=== PATIENT | female | born 1990 | race Caucasian/White ===

== ENCOUNTER 2024-10-01 07:59 | Inpatient (IN) | payer BC, MEDICAID, SELFPAY ==
[2024-10-01] VITALS (34 sets, daily range): BP systolic 115–158; BP diastolic 57–89; PULSE 67–88; RESP 16–17; TEMP 36.5–36.7; O2SAT 96–100; BMI 40.7
--- NOTE | 2024-10-01 07:34 | P.HP_ITS ---
Providers/Chief Complaint 2 Primary Care Provider: David Crain Chief Complaint: Ctx History of Present Illness Maggie Mcdonnell is a 34 year old with stated MELBA of 08/30/2024 which would put her at 44.4 weeks gestation by LMP. Her is complicated by no care, history of prior section x 3, history of x 3 at home, history of large for gestational age infant, history of stillbirth after attempted , obesity, advanced maternal age. The patient presented to labor and delivery triage for concerns that she was in labor and not making any progress over the last 3 hours. The patient began to have contractions on the afternoon of 09/29/2024. Her water broke at approximately 3 AM on 09/30/2024. She continued to contract at home and the felt like she was complete but did not make any change after 3 hours of pushing. Because of this they presented to labor and delivery for further evaluation. Review of Systems 2 Narrative: The patient denies any chest pains, shortness of breath, nausea, vomiting, diarrhea, constipation, fever, vaginal bleeding. Medications/Allergies Allergies Allergy/AdvReac Type Severity Reaction Status Date / Time No Known Allergies Allergy Verified 10/01/24 10:23 PFSH Acute 2 PFSH: Surgical History (Updated 10/01/24 @ 10:24 by Jamison Zimmer MD) History of section C/S x 3 Social History (Updated 10/01/24 @ 10:24 by Jamison Zimmer MD) Smoking and tobacco/nicotine status: never used tobacco/nicotine Alcohol intake: never Substance/Drug Use: never Physical Exam 2 Narrative: General: Alert and oriented x3, in pain with contractions Eyes: Pupils equal round and reactive to light and accommodation Mouth: Mucous membranes moist, pharynx non-erythematous Cardiac: Regular rate and rhythm without murmurs Lungs: Clear to auscultation bilaterally without wheezes, crackles or rhonchi Abdomen: Soft, non-tender, fundus consistent with gestational age : Complete with -1 station. Head does not move down well with contraction. Extremities: Trace edema in the bilateral lower extremities Data 10/01/24 07:20 10/01/24 07:20 A&P Assessment and plan (1) Intrauterine : In labor and delivery, the patient was complete and with pushing, the head pushed against the pubic bone, but would not move below it and retracted quickly. The heart tones showed frequent early decelerations and overall was relatively flat and was not reassuring. Because of concern for distress, prolonged rupture of membranes, and apparently being complete and pushing for over 3 hours without movement below the pubic bone as well as a history of prior section and large for gestational , it was felt best to proceed with a repeat low-transverse section to decrease risk for further complications. The patient and are in agreement with this plan of care. Risks and complications were discussed for a repeat with the patient. All questions were answered. (2) Advanced maternal age (AMA) in : (3) Obesity: Attestations 2 Medical Necessity Statement*: The patient will be here for greater than 2 midnights due to routine intrapartum and management of section. Coding Level of Care Code Acute Code for Chg Fwd Diagnoses Intrauterine Z34.90 Advanced maternal age (AMA) in Obesity E66.9
[2024-10-01] MEDS: citric acid-sodium citrate 30 mL UDC PO (07:38)
[2024-10-01] MEDS: metoclopramide 5 mg/mL SDV 2 mL 10 MG IVP (07:38)
[2024-10-01] MEDS: famotidine 20 mg/2 mL INJ IVP (07:38)
[2024-10-01] MEDS: sodium chloride 0.9% 1,000 ML 999 ML IV (07:38)
[2024-10-01] MEDS: ceFAZolin 2,000 mg SDV 2000 MG IVP (07:41)
[2024-10-01 07:48] LABS: Basophils # 0.1 10^3/uL (0.0-0.1); Basophils % 0.4 %; Hematocrit 36.7 % (36-47); Mean Corpuscular HGB Conc 31.6 g/dL (30-55); Mean Corpuscular Hemoglobin 26.1 pg (27-33); Mean Corpuscular Volume 82.5 fl (85-98); Mean Platelet Volume 12.4 fL (7.4-10.4); Monocytes # 0.4 10^3/uL (0.2-0.9); Monocytes % 2.4 %; Neutrophils # 15.28 10^3/uL (1.8-7.7); Neutrophils % 90.6 %; Nucleated Red Blood Cells % 0 %; Platelet Count 280 10^3/cmm (157-399); Red Blood Count 4.45 10^6/uL (3.85-5.65); Red Cell Distribution Width 13.8 % (12.1-15.1); White Blood Count 16.86 10^3/uL (3.29-11.43)
[2024-10-01 08:07] LABS: Hepatitis B Surface Antigen Non-Reactive (Nonreactive); Rubella IgG 74.7 IU/mL (0.0-10.0)
[2024-10-01 08:10] LABS: Rapid Plasma Reagin Syphilis Nonreactive (Nonreactive)
--- NOTE | 2024-10-01 08:19 | P.ANESASSM_ITS ---
Pre-Anesthetic Assessment Preop Diagnosis: Failure to progress Repeat C-seciton Familial anesthetic complications: None Was Beta Cesar taken within 24 hours: N/A Was Clonidine taken within 24 hours: N/A Last intake: > 8hrs Social No alcohol and No tobacco Exam alert, oriented x 3, clear to auscultation bilaterally and regular rate & rhythm Airway Mallampati: Class IV Metabolic Morbid Obesity Anesthetic Plan ASA status: 3E Anesthesia: Regional (specify below) Risk of > 500 ml blood loss (7ml/kg in children): Yes, adequate IV access and fluids planned Other Pertinent Information No pre- care, 2 prior c-sections, presents at 44 weeks gestation after failed home delivery. Denies any medical conditions Medications/Allergies Current Medications Generic Name Dose Route Start Last Admin Trade Name Freq PRN Reason Stop Dose Admin Sodium Chloride 1,000 mls @ 999 mls/hr 10/01/24 07:30 10/01/24 07:38 Sodium Chloride 0.9% IV 10/01/24 08:30 999 mls/hr .Q1H1M ONE Administration Data Anesthesia 10/01/24 07:20 10/01/24 07:20 Short CBC 10/01/24 Range/Units 07:20 WBC 16.86 H (3.29-11.43) 10^3/uL Hgb 11.60 (11.27-16.99) g/dL Hct 36.7 (36-47) % MCV 82.5 L (85-98) fl Plt Count 280 (157-399) 10^3/cmm Neut % (Auto) 90.6 % Neut # (Auto) 15.28 H (1.8-7.7) 10^3/uL Cardiac Studies: 2 No Data to Display
[2024-10-01 08:21] LABS: HIV 1 & 2 Antibody Non-Reactive (Non-Reactiv); HIV 1 & 2 Antigen Non-Reactive (Non-Reactiv)
[2024-10-01 08:29] LABS: Alanine Aminotransferase 22 U/L (0-33); Albumin Level 3.8 g/dL (3.5-5.2); Alkaline Phosphatase 249 U/L (35-105); Aspartate Amino Transferase 19 U/L (0-32); Blood Urea Nitrogen 16 mg/dL (6-20); Calcium 9.4 mg/dL (8.5-10.5); Carbon Dioxide 18 mmol/L (22-29); Chloride 97 mmol/L (98-107); Globulin 3.7 g/dL (1.3-4.6); Glomerular Filtration Rate 95.2 mL/min (90-130); Glucose 150 mg/dL (65-115); Osmolality Calculated 280 mOsm/kg (285-295); Sodium 133 mmol/L (136-145); Total Bilirubin 0.3 mg/dL (0.15-1.2); Total Protein 7.5 g/dL (6.6-8.7)
[2024-10-01] MEDS: clindamycin 900 MG/50 ML PREMIX 100 MG IV ×2 (08:39→17:02)
[2024-10-01 09:15] LABS: Amphetamines Screen Urine Negative (Negative); Barbiturates Screen Urine Negative (Negative); Benzodiazepines Screen Urine Negative (Negative); Cocaine Screen Urine Negative (Negative); Opiate Screen Urine Negative (Negative); PCP Screen Urine Negative (Negative); THC Screen Urine Negative (Negative)
[2024-10-01] MEDS: tranexamic acid 1,000 MG/100 ML PREMIX 600 MG IV (09:22)
[2024-10-01 10:14] LABS: Chlamydia Trachomatis NOT DETECTED; Neisseria Gonorrhea NOT DETECTED
--- NOTE | 2024-10-01 10:17 | P.OP_ITS ---
Operative Report Date of procedure: October 01, 2024 Pre-op diagnosis: 1. Intrauterine at 44.4 weeks gestation 2. Arrest of descent 3. History of section x 3 4. History of x 3 at home 5. History of large for gestational age 6. History of stillbirth after attempted at home 7. Obesity 8. Advanced maternal age 9. No care Post-op diagnosis: 1. Intrauterine status post repeat low-transverse section at 44.4 weeks gestation 2. Arrest of descent 3. History of section x 3 4. History of x 3 at home 5. History of large for gestational age infant 6. History of stillbirth after attempted at home 7. Obesity 8. Advanced maternal age 9. No care 10. Delivery of healthy infant male weighing 10 pounds 3 ounces with Apgars of 8 and 9 11. Concern for chorioamnionitis Post-op findings: 1. Milky colored amniotic fluid 2. Severe scar tissue covering the entire lower uterine segment and part of the mid uterus anteriorly 3. 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 Her is complicated by no care, history of prior section x 3, history of x 3 at home, history of large for gestational age , history of stillbirth after attempted , obesity, advanced maternal age. In labor and delivery, the patient was complete and with pushing, the head pushed against the pubic bone, but would not move below it and retracted quickly. The heart tones showed frequent early decelerations and overall was relatively flat and was not reassuring. Because of concern for distress, prolonged rupture of membranes, and apparently being complete and pushing for over 3 hours without movement below the pubic bone as well as a history of prior section and large for gestational infant, it was felt best to proceed with a repeat low-transverse section to decrease risk for further complications. The patient and are in agreement with this plan of care. Risks and complications were discussed for a repeat with the patient. All questions were answered. Procedure: After informed consent was obtained, the patient was taken to the operating room and the patient was prepped and draped in a normal sterile fashion in the dorsal supine position.? A spinal was placed and adequate anesthesia was obtained.? At 8:08 AM on 10/01/2024 a Pfannenstiel skin incision was made and carried through to the underlying layer of fascia using a scalpel.? The fascial incision was then extended laterally using curved Mayos.? The fascia was then grasped with Ivone clamps and the underlying rectus muscles were dissected off taking care to avoid injury to the underlying tissues.? Significant scar tissue was noted and the peritoneum was entered bluntly initially using Metzenbaums followed by sharply using curved Banerjee's.? It was then bluntly.? A large amount of scar tissue was noted across the lower uterine segment stretching superiorly to the mid segment of the uterus. This was removed using electrical cautery in order to allow for a window to be made in the lower uterine segment. The bladder blade was placed. The uterine incision was made in the lower uterine segment in a transverse fashion with the scalpel at 8:16 AM on 10/01/2024.? The amniotic membrane was entered bluntly and a small amount of milky colored fluid was noted. The 's head was low in the canal and the right arm delivered first. With significant upward force, the head was pulled up into the uterine incision and it then delivered easily. The infant's head delivered without complication at 8:18 AM on 10/01/2024.? There was no nuchal cord.? The mouth and nose were suctioned.? The rest of the infant delivered without difficulty.? The took a breath immediately upon delivery.? The cord was clamped and cut and the was handed to the awaiting pediatric nurses.? The placenta was then manually expressed.? The uterus was exteriorized from the abdomen.? A wet lap was used to clear the uterus of clots and debris.? The bladder blade was reinserted and the uterine incision was closed using 0 chromic in a running locking fashion.? The uterus was noted to be firm.? A second layer of the same suture was used in the same manner.? The patient had significant oozing across the entire anterior surface of the lower uterine segment where scar tissue had been cleared. A third layer of 0 chromic was placed to obtain hemostasis. Multiple [id number] sutures were placed to decrease bleeding especially across the left superior portion of the area where the scar tissue was removed. Electrical cautery was used to help stop the oozing. 2 bottles of Maria Del Carmen were used to help with hemostasis. 1 dose of TXA was used. Finally hemostasis was obtained. Next the posterior cul-de-sac was inspected and was cleared of any blood. The gu tters were cleared of any further clots and debris and the uterine incision was again inspected and hemostasis was noted.? 2 pieces of Surgicel were used to cover the surface of the incision and area where the scar tissue was removed. The subfascial tissue was inspected for hemostasis and the peritoneum was re- approximated using 2-0 plain in a running fashion.? The fascia was then re-approximated using 0 Vicryl in a running fashion.? The subcutaneous tissue was inspected for hemostasis.? Yves's fascia was then re-approximated using 3- 0 plain in a running fashion.? Good hemostasis was noted.? The subcutaneous tissue was then re-approximated using a subcuticular stitch.? The patient tolerated the procedure well and was recovered in stable condition.? Estimated blood loss was 800 mL. Urine in the Mobley catheter was clear. The patient was taken to recovery in good condition.
--- NOTE | 2024-10-01 10:59 | PC.NURSE ---
In operating room
[2024-10-01] MEDS: ketorolac 30 mg/mL INJ IVP ×2 (11:16→17:02)
[2024-10-01] MEDS: dextrose 5%-lactated ringers 1,000 ML 125 ML IV (11:31)
--- NOTE | 2024-10-01 11:50 | ANE.PACU2 ---
Inpatient post-anesthesia follow up: Airway intact: Yes Vital signs: Temperature Pulse Rate 76 Respiratory Rate Blood Pressure 138/71 Pulse Oximetry Oxygen Delivery Me thod Room Air Oxygen Flow Rate Fraction of Inspir ed Oxygen Hydration adequate: Yes Nausea and vomiting: No Pain level: 1 Mental status: Baseline
--- NOTE | 2024-10-01 11:54 | PC.NURSE ---
pt was placed on monitor @0712 and was taken off monitor @0747 and taken to OR for repeat . FHT were 140 moderate variablility no accels and variables with some ctx. Pt was ctx every 2-3 minutes lasting 50 seconds to 110 seconds. Heart tones were tracing under a different pt.
[2024-10-01] MEDS: sodium chloride 0.9% 500 ML 999 ML IV (16:14)
[2024-10-01 21:52] LABS: Mean Corpuscular HGB Conc 31.9 g/dL (30-55); Mean Corpuscular Hemoglobin 26.1 pg (27-33); Mean Corpuscular Volume 82.1 fl (85-98); Mean Platelet Volume 12.8 fL (7.4-10.4); Platelet Count 235 10^3/cmm (157-399); Red Blood Count 3.29 10^6/uL (3.85-5.65); Red Cell Distribution Width 13.8 % (12.1-15.1)
[2024-10-02] VITALS (11 sets, daily range): BP systolic 120–135; BP diastolic 66–77; PULSE 80–237; RESP 16–17; TEMP 35.9–36.7; O2SAT 79–97
[2024-10-02] MEDS: ketorolac 30 mg/mL INJ IVP (00:08)
[2024-10-02] MEDS: clindamycin 900 MG/50 ML PREMIX 100 MG IV ×2 (01:30→08:40)
[2024-10-02] MEDS: PRENATAL VIT NO.130/IRON/FOLIC 1 EACH TABLET PO (08:39)
[2024-10-02] MEDS: oxyCODONE-APAP 5-325 mg Tablet PO ×4 (08:39→20:38)
[2024-10-02] MEDS: ferrous sulfate EC 325 mg Tablet PO (08:39)
[2024-10-02] MEDS: docusate sodium 100 mg Capsule PO ×2 (08:40→20:37)
--- NOTE | 2024-10-02 09:51 | P.PN_ITS ---
Subjective 2 Subjective: The patient is feeling okay overall today. Her pain did increase some, but is improved with pain medications. She is passing gas and now tolerating food by mouth. She is ambulating and voiding. Her bleeding is decreasing well. Vitals/I&O/Wt Last Vital Signs Temp 96.6 F L 10/02/24 06:18 Pulse 80 10/02/24 06:19 Resp 16 10/02/24 08:39 BP 120/67 10/02/24 06:19 Pulse Ox 97 10/01/24 10:40 O2 Del Method Room Air 10/01/24 07:20 10/01/24 10/02/24 10/02/24 22:59 06:59 14:59 Intake Total 50 / 1850 50 / 1900 Output Total 560 / 1780 700 / 2480 Balance -510 / 70 -650 / -580 Weight last 48 hrs Weight 230 lb Physical Exam 2 Narrative: General: Alert and oriented x3 Cardiac: Regular rate and rhythm without murmurs Lungs: Clear to auscultation bilaterally without wheezes, crackles or rhonchi Abdomen: Soft, moderate tenderness over the uterus. Uterus is firm and 1 cm below the umbilicus. Incision is clean and dry without signs of infection or dehiscence. There is mild to moderate edema in the lower abdominal wall. Extremities: Trace edema in the bilateral lower extremities Urinary Catheter Management: Mobley: Cath Placed During This Visit: yes, but has since been removed by the nurse Reason for Continuing Indwelling Catheter: Decision to DC Catheter Urinary Catheter Date of Insertion: 10/01/24 Urinary Catheter Time of Insertion: 08:00 Date Urinary Catheter Removed: 10/01/24 Time Urinary Catheter Discontinued: 22:00 Data 10/01/24 21:13 10/01/24 07:20 A&P Assessment and plan (1) Status post section: The patient is doing well status post section that was done yesterday. She is showing no signs of significant complications. She did have a 3 point drop in her hemoglobin. She seems to be stable with this. We will start iron supplements to help bring this up. At this point she is ambulating, voiding, passing gas and tolerating food by mouth. Her pain is well-controlled. If everything continues to go well, we will plan for discharge home tomorrow. We had a lengthy discussion regarding the potential risks for future pregnancies and the recommendation to avoid getting within 12 months of a section to decrease risk for uterine rupture. We also discussed that need to have a repeat if she were to get again to keep this risk for uterine rupture down. I also brought up the increased risk for stillbirth that is up to 7 times higher at 44 weeks gestation then term and encouraged them to look at delivering at term instead of postterm to keep this risk down as well. Routine close historian. Discussion was had as well in terms of decreasing risk for infection and dehiscence. All questions were answered. We will plan for discharge tomorrow if she is continuing to improve. (2) Advanced maternal age (AMA) in : (3) Anemia: Attestations 2 Medical Necessity Statement*: The patient will be here for greater than 2 midnights due to routine intrapartum and management of section. Coding Level of Care Code Acute Code for Chg Fwd Diagnoses Status post section Z98.891 Advanced maternal age (AMA) in Anemia D64.9
[2024-10-02] MEDS: ibuprofen 800 mg tablet PO ×2 (14:58→20:37)
[2024-10-03] VITALS (8 sets, daily range): BP systolic 122–138; BP diastolic 69–78; PULSE 78–86; RESP 16–17; TEMP 37.1; O2SAT 98
[2024-10-03] MEDS: oxyCODONE-APAP 5-325 mg Tablet PO ×3 (00:25→10:29)
[2024-10-03] MEDS: ibuprofen 800 mg tablet PO (09:21)
[2024-10-03] MEDS: PRENATAL VIT NO.130/IRON/FOLIC 1 EACH TABLET PO (09:21)
[2024-10-03] MEDS: docusate sodium 100 mg Capsule PO (09:21)
--- NOTE | 2024-10-03 10:16 | P.DS_ITS ---
Discharge Providers Date of Admission: 10/01/24 07:59 Date of Discharge: October 03, 2024 Attending Provider at Admission: Jamison Zimmer MD Attending Provider at Discharge: Jamison Zimmer MD Primary Care Provider: David Crain Diagnoses at Discharge Discharge Diagnosis (1) Status post section: Status: Acute (2) Advanced maternal age (AMA) in : Status: Acute (3) Anemia: Status: Acute Other Information Additional DC diagnoses/information: 1. Intrauterine status post repeat low-transverse section at 44.4 weeks gestation 2. Arrest of descent 3. History of section x 3 4. History of x 3 at home 5. History of large for gestational age infant 6. History of stillbirth after attempted at home 7. Obesity 8. Advanced maternal age 9. No care 10. Delivery of healthy infant male weighing 10 pounds 3 ounces with Apgars of 8 and 9 11. Concern for chorioamnionitis 12. Prolonged rupture membranes 13. Nonreassuring heart tones Reason for Visit Reason for Visit: Ctx Brief History: Maggie Mcdonnell is a 34 year old G7 now P7006 with stated MELBA of 08/30/2024 which would put her at 44.4 weeks gestation by LMP. Her is complicated by no care, history of prior section x 3, history of x 3 at home, history of large for gestational age infant, history of stillbirth after attempted , obesity, advanced maternal age. The patient presented to labor and delivery and was complete. She had no care and I took care of her on the unassigned list. At home she had apparently been pushing for approximately 3 hours and there was no movement of the head below the pubic bone. For this reason, the patient's was concerned that the would not fit and presented to labor and delivery for further evaluation. Hospital Course Hospital Course In labor and delivery, the patient was complete and with pushing, the head pushed against the pubic bone, but would not move below it and retracted qu ickly. The heart tones showed frequent early decelerations and overall was relatively flat and was not reassuring. Because of concern for distress, prolonged rupture of membranes, and apparently being complete and pushing for over 3 hours without movement below the pubic bone as well as a history of prior section and large for gestational infant, it was felt best to proceed with a repeat low-transverse section to decrease risk for further complications. The patient and were in agreement with this plan of care. The patient was taken back for a repeat low-transverse section. Of note, there was significant scar tissue overlying the lower uterine segment that had to be dissected off of it in order to proceed with incision of the uterus. The delivered with some difficulty and weighed 10 pounds 3 ounces. The infant's Apgars were 8 and 9 and the infant is currently doing well. The patient did have significant oozing across the lower uterine segment and it was difficult to control, however good hemostasis was noted prior to completing the surgery. Her hemoglobin did drop 3 points and she is on an iron supplement. I encouraged her to take this for the next 4 to 6 weeks along with a vitamin until she is done breast-feeding. Routine discharge instructions were discussed as well as post care. Precautions were discussed in terms of risk for infection and dehiscence. We had a lengthy discussion regarding the risks of after 4 sections as well as the risk for postterm pregnancies for both the patient and the baby. I also discussed with her that the recommendation to wait 12 months prior to becoming again. I urged her to get care if she were to become again and to plan on having a repeat section at term. The patient and her seemed receptive. the patient has done very well. Her pain is well-controlled. She is ambulating, voiding, passing gas and tolerating food by mouth. Her bleeding is decreasing well. Prescriptions were sent to the patient's pharmacy and she has these filled. We will plan to see her back in my clinic at 2 weeks and 6 weeks . She is to seek immediate medical care if she has concerns for any infection or complications prior to this. All questions were answered. The patient and her are in agreement with the current plan of care and for discharge home at this time. Physical Exam Narrative: General: Alert and oriented x3 Cardiac: Regular rate and rhythm without murmurs Lungs: Clear to auscultation bilaterally without wheezes, crackles or rhonchi Abdomen: Soft, mild to moderate tenderness over the uterus. No rebound tenderness. Uterus is firm and 1 cm below the umbilicus. Incision is clean and dry without signs of infection or dehiscence. There is mild to moderate edema in the lower abdominal wall. Extremities: Trace edema in the bilateral lower extremities Urinary Catheter Management: [place]: Cath Placed During This Visit: yes, but has since been removed by the nurse Reason for Continuing Indwelling Catheter: Decision to DC Catheter Urinary Catheter Date of Insertion: 10/01/24 Urinary Catheter Time of Insertion: 08:00 Date Urinary Catheter Removed: 10/01/24 Time Urinary Catheter Discontinued: 22:00 Discharge Data Studies Completed and Pending Pending at discharge Category Date Time Status Retype for Patiets ABO/Rh Routine Lab 10/01/24 09:27 Ordered Laboratory Results WBC 13.80 10^3/uL (3.29-11.43) H 10/01/24 21:13 RBC 3.29 10^6/uL (3.85-5.65) L 10/01/24 21:13 Hgb 8.60 g/dL (11.27-16.99) L 10/01/24 21:13 Hct 27.0 % (36-47) L 10/01/24 21:13 MCV 82.1 fl (85-98) L 10/01/24 21:13 MCH 26.1 pg (27-33) L 10/01/24 21:13 MCHC 31.9 g/dL (30-55) 10/01/24 21:13 RDW 13.8 % (12.1-15.1) 10/01/24 21:13 Plt Count 235 10^3/cmm (157-399) 10/01/24 21:13 MPV 12.8 fL (7.4-10.4) H 10/01/24 21:13 Neut % (Auto) 90.6 % 10/01/24 07:20 Lymph % (Auto) 6.0 % 10/01/24 07:20 Door % (Auto) 2.4 % 10/01/24 07:20 Eos % (Auto) 0.0 % 10/01/24 07:20 Baso % (Auto) 0.4 % 10/01/24 07:20 Neut # (Auto) 15.28 10^3/uL (1.8-7.7) H 10/01/24 07:20 Lymph # (Auto) 1.0 10^3/uL (0.8-4.8) 10/01/24 07:20 Door # (Auto) 0.4 10^3/uL (0.2-0.9) 10/01/24 07:20 Eos # (Auto) 0.0 10^3/uL (0.0-0.8) 10/01/24 07:20 Baso # (Auto) 0.1 10^3/uL (0.0-0.1) 10/01/24 07:20 Nucleated RBC % (auto) 0 % 10/01/24 07:20 Nucleated RBCs # 0.0 /100WBC 10/01/24 07:20 Sodium 133 mmol/L (136-145) L 10/01/24 07:20 Potassium 4.0 mmol/L (3.5-5.1) 10/01/24 07:20 Chloride 97 mmol/L (98-107) L 10/01/24 07:20 Carbon Dioxide 18 mmol/L (22-29) L 10/01/24 07:20 Anion Gap 22.0 (5-19) H 10/01/24 07:20 BUN 16 mg/dL (6-20) 10/01/24 07:20 Creatinine 0.7 mg/dL (0.5-0.9) 10/01/24 07:20 GFR Calculation 95.2 mL/min (90-130) 10/01/24 07:20 Glucose 150 mg/dL (65-115) H 10/01/24 07:20 Calculated Osmolality 280 mOsm/kg (285-295) L 10/01/24 07:20 Calcium 9.4 mg/dL (8.5-10.5) 10/01/24 07:20 Total Bilirubin 0.3 mg/dL (0.15-1.2) 10/01/24 07:20 AST 19 U/L (0-32) 10/01/24 07:20 ALT 22 U/L (0-33) 10/01/24 07:20 Alkaline Phosphatase 249 U/L (35-105) H 10/01/24 07:20 Total Protein 7.5 g/dL (6.6-8.7) 10/01/24 07:20 Albumin 3.8 g/dL (3.5-5.2) 10/01/24 07:20 Globulin 3.7 g/dL (1.3-4.6) 10/01/24 07:20 Urine Opiates Screen Negative ng/mL (Negative) 10/01/24 08:05 Ur Barbiturates Screen Negative ng/mL (Negative) 10/01/24 08:05 Ur Phencyclidine Scrn Negative ng/mL (Negative) 10/01/24 08:05 Ur Amphetamines Screen Negative ng/mL (Negative) 10/01/24 08:05 U Benzodiazepines Scrn Negative ng/mL (Negative) 10/01/24 08:05 Urine Cocaine Screen Negative ng/mL (Negative) 10/01/24 08:05 U Marijuana (THC) Screen Negative ng/mL (Negative) 10/01/24 08:05 RPR Nonreactive (Nonreactive) 10/01/24 07:20 C. trachomatis (PCR) Not detected 10/01/24 08:05 Hep Bs Antigen Non-reactive (Nonreactive) 10/01/24 07:20 HIV 1&2 Ab & HIV 1 Ag Non-reactive (Non-Reactiv) 10/01/24 07:20 HIV 1&2 Antibody Non-reactive (Non-Reactiv) 10/01/24 07:20 N. gonorrhoeae (PCR) Not detected 10/01/24 08:05 Rubella IgG Antibody 74.7 IU/mL (0.0-10.0) H 10/01/24 07:20 Blood Type A Positive 10/01/24 07:20 Rho(D) Type Rh positive 10/01/24 07:20 Antibody Screen Negative 10/01/24 07:20 Vitals Last Vital Signs Temp 98.1 F 10/02/24 20:40 Pulse 86 10/03/24 09:23 Resp 16 10/03/24 05:52 BP 138/71 10/03/24 09:23 Pulse Ox 97 10/02/24 20:39 O2 Del Method Room Air 10/02/24 20:40 Discharge Plan Discharge Patient Disposition: Home Condition: Good Prescriptions: New ibuprofen 800 mg Tablet 800 mg PO TID Qty: 60 0RF oxycodone-acetaminophen 5-325 mg Tablet 1 tab PO Q6H PRN (Reason: Moderate To Severe Pain) Qty: 30 0RF ferrous sulfate 325 mg (65 mg iron) Tablet,Delayed Release (Dr/Ec) 325 mg PO BIDWM Qty: 60 0RF Vitamin 27 mg iron- 800 mcg Tablet 1 tab PO DAILY Qty: 30 2RF Discharge Orders: Discharge Order (Routine); Ordered 10/03/24 Ordered By: Jamison Zimmer Referrals: Jamison Zimmer MD [Physician] - 2 weeks (Please call for an appt at 2 weeks and 6 weeks ) Discharge Diet: Regular Discharge Activity: Limit activity as instructed Patient Instructions: Depression (DC), Opioid Safety (DC), Preec lampsia and Eclampsia After Delivery (GEN), Hemorrhage (DC), OB C- Section [facility], OB Discharge Report, OB Food/Drug Interaction Guide, Opioid Safety, OB [facility], Abnormal Bleeding Activity Restrictions/Additional Instructions: Do not lift anything heavier than your infant in the car seat for the first 3 weeks, then gradually increase to full lifting by 6 weeks . If you have any concern for infection in your incision site, please seek immediate medical attention. Nothing per vagina for 6 weeks. Showers are recommended instead of baths for the first 6 weeks. Discharge Attestations Time Spent in Discharge Care*: greater than 30 min Quality Metrics Clinical Quality Measures [ No reported AMI, CVA or VTE this stay] Coding Level of Care Code Acute Code for Chg Fwd Diagnoses Status post section Z98.891 Advanced maternal age (AMA) in Anemia D64.9
== END 2024-10-03 12:35 | disposition home or self-care (01) | DRG 786 ==
LOC: OPOB 08:00 → OBGYN 08:00
PROVIDERS: Admitting Provider Family Medicine; Family Provider Physician Assistant; PCP Physician Assistant; Visit Provider Family Medicine
PROC: 10D00Z1 Extraction of Products of Conception, Low, Open Approach (ICD-10-PCS; CPT 59514; principal; 2024-10-01 07:35)
DX: O48.1 Prolonged pregnancy (principal); O41.1230 Chorioamnionitis, third trimester, not applicable or unspecified; Z3A.49 Greater than 42 weeks gestation of pregnancy; O99.214 Obesity complicating childbirth; O76 Abnormality in fetal heart rate and rhythm complicating labor and delivery; O32.4XX0 Maternal care for high head at term, not applicable or unspecified; O43.893 Other placental disorders, third trimester; O34.211 Maternal care for low transverse scar from previous cesarean delivery; N85.8 Other specified noninflammatory disorders of uterus; Z37.0 Single live birth; O90.81 Anemia of the puerperium
CPT/HCPCS: 36415; 51702; 59025; 59409; 80053; 80306; 85025; 85027; 86592; 86762; 86850; 86900; 87340; 87491; 87591; 87806; 96374; 96376; 99211; J0690; J1885; J2250; J2274; J2704; J2765; J3490; J7030; J7040; J7121